=== PATIENT | female | born 1955 | race Caucasian/White ===

== ENCOUNTER 2024-12-22 07:44 | Day surgery (SDC) | payer BC, MEDICARE ==
[2024-12-22] MEDS: Sodium Chloride 0.9% 10 ML Syringe FLUSH PRN (08:09)
[2024-12-22] MEDS: Lactated Ringers 1,000 ML IV SCH (08:10)
[2024-12-22] MEDS ORDERED: Propofol 200 MG/20 ML SDV ONE (08:12)
[2024-12-22] MEDS ORDERED: Midazolam 1 MG/ML 2 ML SDV ONE (08:12)
[2024-12-22 11:27] VITALS: BP 93/54; PULSE 87
== END 2024-12-22 11:11 | disposition home or self-care (01) ==
LOC: KA.SDS 07:44
PROVIDERS: ATTEND Family Medicine
DX: Z12.11 Encounter for screening for malignant neoplasm of colon (principal); D12.3 Benign neoplasm of transverse colon; K57.30 Diverticulosis of large intestine without perforation or abscess without bleeding; K64.8 Other hemorrhoids; N18.31 Chronic kidney disease, stage 3a; E78.5 Hyperlipidemia, unspecified; Z79.899 Other long term (current) drug therapy; Z86.0101 Personal history of adenomatous and serrated colon polyps
CPT/HCPCS: 00811; 88305; 99100; J2250; J2704; J7120